=== PATIENT | female | born 1975 | race Hispanic/Latino ===

== ENCOUNTER 2019-11-06 17:07 | Emergency (ER) | payer OTHER ==
[~2019-11-06] VITALS: Ht 157.5 cm; Wt 79.8 kg
--- OUTSIDE RECORDS SUMMARY | 2019-11-06 17:09 | XMS REPORT ---
Author Author [facility] Organization [facility] Address [address] [place] [address] Phone Unavailable Care Team Providers Care Tool Filer Hand Name Role Phone Unavailable Unavailable Problems This patient has no known problems. Allergies, Adverse Reactions, Alerts This patient has no known allergies or adverse reactions. Medications This patient has no known medications. Procedures This patient has no known procedures. Results Test Description Test Time Test Comments Results Result Comments Source BREAST ULTRASOUND BILATERAL 2019-01-20 12:37:37 - BREAST ULTRASOUND BILATERALULTRASOUND OF BOTH BREASTS AND BOTH AXILLA: 01/20/2019CLINICAL: Supplemental Screening for Dense Breast. Comparison is made to exams dated 01/07/2019 mammogram, 12/25/2016 ultrasound, and 12/25/2016 mammogram - [facility]. Real-time ultrasound of both breasts and both axilla and clinical breast exam was performed. No abnormalities were seen sonographically in either breast or either axilla. Clinical breast exam are unremarkable.IMPRESSION: NEGATIVE There is no sonographic evidence of malignancy. Patient has been informed that she has areas of dense breast tissue that could make it difficult to find a small cancer. A screening mammogram and supplemental ultrasound for dense breast tissue is recommended in 1 year.Wanda Ricci M.D. dm/:01/20/2019 12:37:37 Cardiopulmonary Technician And Eeg Tech: Ekta HINTON, [facility] sent: BIRADS 1-2 Combo FU Letter Ultrasound BI- RADS: 1 Negative SCR MAMM BILATERAL FERNANDA CAD DIGITAL 2019-01-07 13:36:57 - SCR MAMM BILATERAL FERNANDA CAD DIGITALBILATERAL DIGITAL SCREENING MAMMOGRAM 3D/2D WITH CAD: 01/07/2019CLINICAL: Asymptomatic. Digital breast tomosynthesis was performed in addition to routine CC and MLO views. Current mammographic images were evaluated by either a Merkle M-Vu or a Neverwarecker CAD (computer aided detection system). Comparison is made to exams dated 12/31/2017 mammogram, 017 mammogram, and 12/24/2015 mammogram - [facility] The tissue of both breasts is heterogeneously dense. This may lower the sensitivity of mammography. No suspicious mass, architectural distortion, malignant type calcification, or lymph node abnormality detected. Breast architecture is stable compared to prior exams.IMPRESSION: NEGATIVEThere is no mammographic evidence of malignancy. Resume annual screening mammography in one year. Leticia cristina/carmelina:01/07/2019 13:36:57 Cardiopulmonary Technician And Eeg Tech: Sue Kumar , [facility] sent: BIRADS 1-2 Normal Mammogram BI-RADS: 1 Negative
[2019-11-06] MEDS ORDERED: IBUPROFEN 600 MG TAB PO STA (17:45)
[2019-11-06] MEDS ORDERED: IBUPROFEN 400 MG TAB ONE (17:52)
[2019-11-06] MEDS ORDERED: IBUPROFEN 400 MG TAB PO NR (18:00)
[2019-11-06] MEDS ORDERED: ACETAMINOPHEN 325 MG TAB PO ONE (18:00)
--- NOTE | 2019-11-06 18:00 | NUR ---
orange band per protocol. pt wearing mask to room. swabs taken per protocol.
--- NOTE | 2019-11-06 18:10 | Diagnostic Imaging Report ---
EXAMINATION: CXR 1 [facility] INDICATION: ^cough ^[id number] ^[id number] COMPARISON: None FINDINGS: AP view TUBES and LINES: None. LUNGS: Lungs are well inflated. No definite focal consolidation. Minimal left lower lung field haziness. PLEURA: No pleural effusion or pneumothorax. HEART AND MEDIASTINUM: The cardiomediastinal silhouette is enlarged. BONES AND SOFT TISSUES: No acute osseous lesion. Soft tissues are unremarkable. UPPER ABDOMEN: No free air under the diaphragm. IMPRESSION: Minimal left lower lung field haziness, could be artifactual due to overlying soft tissues or represent developing pneumonia in the appropriate clinical context. Signed by: Dr. Sesar Mccall MD on 11/06/2019 6:06 PM
[2019-11-06] MEDS ORDERED: TESSALON PERLE100 MG PO (18:16)
[2019-11-06] MEDS ORDERED: CEFDINIR300 MG PO (18:16)
--- NOTE | 2019-11-06 18:29 | Emergency Department Note ---
History of Present Illnes History of Present Illness Chief Complaint: General Medicine Complaints History of Present Illness This is a 44 year old female with cough and fever, seen her MD, JANEID was negative..Sent by her doctor. Historian: Patient Arrival Mode: Car Onset (how long ago): day(s) (3) Location: chest Quality: burning Radiation: non-radiation Severity: moderate Onset quality: gradual Duration (how long): day(s) (3) Timing of current episode: constant Progression: unchanged Chronicity: new Relieving factors: none Exacerbating factors: none Associated symptoms: cough, fever/chills Treatments prior to arrival: none Past Medical/Family History Physician Review I have reviewed the patient's past medical and family history. Any updates have been documented here. Past Medical History Recent Fever: Yes Clinical Suspicion of Infectio: Yes New/Unexplained Change in Ment: No Past Medical History: Hypertension, Hyperlipedemia Other Medical History: obesity Past Surgical History: Social History Smoking Cessation: Never Smoker Counseling Performed: No Alcohol Use: Occasional Any Illegal Drug Use: No TB Exposure/Symptoms: No Physically hurt or threatened: No Other Any Pre-Existing Lines (PICC,: No Last Flu: unk Last Pneumovax: unk Review of Systems Review of Systems Constitutional: no symptoms, fever EENTM: no symptoms Cardiovascular: no symptoms Respiratory: no symptoms, cough Gastrointestinal: no symptoms Genitourinary: no symptoms Musculoskeletal: no symptoms Neurological: no symptoms Psychological: no symptoms Endocrine: no symptoms Hematological/Lymphatic: no symptoms Review of other systems All other systems reviewed and negative. Physical Exam Related Data Allergies: Coded Allergies: No Known Allergies (Unverified , 11/06/19) Triage Vital Signs Vital Signs Date Time Temp Pulse Resp B/P (MAP) Pulse Ox O2 Delivery O2 Flow Rate FiO2 11/06/19 17:30 99.0 108 20 153/95 98 Vital signs reviewed: Yes Physical Exam CONSTITUTIONAL Constitutional: well-developed, well-nourished HENT HENT: normocephalic, atraumatic, oropharynx clear/moist, nose normal HENT L/R: left ext ear normal, right ext ear normal EYES Eyes: PERRL, conjunctivae normal NECK Neck: ROM normal PULMONARY Pulmonary: effort normal, breath sounds normal, rhonchi (left lower) CARDIOVASCULAR Cardiovascular: regular rhythm, heart sounds normal, capillary refill normal, normal rate GASTROINTESTINAL Abdominal: soft, nontender, bowel sounds normal GENITOURINARY Genitourinary: exam deferred SKIN Skin: warm, dry MUSCULOSKELETAL Musculoskeletal: ROM normal NEUROLOGICAL Neurological: alert, oriented x 3, no gross motor or sensory deficits PSYCHOLOGICAL Psychological: mood/affect normal, judgement normal Results Laboratory Lab results reviewed: Yes Imaging Imaging results reviewed: Yes Critical Care Time Subsequent provider I assumed direction of critical care for this patient from another provider of my specialty. Assessment & Plan Assessment & Plan Problems: (1) Fever (2) Pneumonia Depart Disposition: HOME, SELF-CARE Last Vital Signs Date Time Temp Pulse Resp B/P (MAP) Pulse Ox O2 Delivery O2 Flow Rate FiO2 11/06/19 17:51 102.7 11/06/19 17:30 108 20 98 Home Meds Active Scripts Benzonatate (TESSALON PERLE) 100 Mg Capsule, 1 TAB PO TID for cugh for 10 Days, #10 Prov:ALEKSANDRA WALDRON MD 11/06/19 Cefdinir (OMNICEF) 300 Mg Capsule, 14 MG PO BID, #14 CAP Prov:ALEKSANDRA WALDRON MD 11/06/19 Medications in the ED Ibuprofen 600 mg ONCE STAT PO ; Start 11/06/19 at 17:45; Stop 11/06/19 at 17:48; Status DC Acetaminophen 975 mg ONCE ONCE PO Last administered on 11/06/19at 17:51; Admin Dose 975 MG; Start 11/06/19 at 18:00; Stop 11/06/19 at 18:01; Status DC Ibuprofen 800 mg STK-MED ONCE .ROUTE ; Start 11/06/19 at 17:52; Stop 11/06/19 at 17:48; Status DC Ibuprofen 800 mg ONCE PO Last administered on 11/06/19at 18:13; Admin Dose 800 MG; Start 11/06/19 at 18:00; Stop 11/06/19 at 18:59 ALEKSANDRA WALDRON MD November 06, 2019 18:29
== END 2019-11-06 19:00 | disposition home or self-care (01) ==
LOC: FSED 17:07
DX: R50.9 Fever, unspecified (principal); R05 Cough; J18.9 Pneumonia, unspecified organism; I10 Essential (primary) hypertension; E78.5 Hyperlipidemia, unspecified
CPT/HCPCS: 71045; 80053; 81003; 83518; 85025; 87400; 99284

== ENCOUNTER 2019-11-13 22:51 | Emergency (ER) | payer OTHER ==
[~2019-11-13] VITALS: Ht 157.5 cm; Wt 79.8 kg
[~2019-11-13 22:51] MED LIST changes: -IOPAMIDOL 370 MG/ML 200 ML INFUS..BTL INJ ONE; -SODIUM CHLORIDE 0.9% 50ML 50 ML ONE
--- OUTSIDE RECORDS SUMMARY | 2019-11-13 22:54 | XMS REPORT ---
Author Author [facility] t Organization [facility] Address [address] [place] [address] Phone Unavailable Care Team Providers Care Upholstery Sewer Name Role Phone MD MICHELL HALLMAN PCP MICHELL HALLMAN Attphys Unavailable Apple GUEVARA, M Patricia Attphys Unavailable ALEKSANDRA WALDRON Attrishabh Unavailable Advance Directives Directive Decision Effective Date Termination Date Comments Sour ce Yes N/A [facility] Problems Condition Name Condition Details Condition Category Status Onset Date Resolution Date Last Treatment Date Treating Clinician Comments Source Pneumonia Problem [facility] Fever Problem [facility] Allergies, Adverse Reactions, Alerts This patient has no known allergies or adverse reactions. Social History Social Habit Start Date Stop Date Quantity Comments Source Sex Assigned At 1975 00:00:00 1975 00:00:00 Female [facility] Medications Ordered Medication Name Filled Medication Name Start Date Stop Da te Current Medication? Ordering Clinician Indication Dosage Frequency Signature (SIG) Comments Components Source Benzonatate (Tessalon Perle) 100 Mg CAPSULE Benzonatat e (Tessalon Perle) 100 Mg CAPSULE 2019-11-06 18:16:00 Yes 1 [facility] Cefdinir (Omnicef) 300 Mg CAPSULE Cefdinir (Omnicef) 300 Mg CAPSULE 2019-11-06 18:16:00 Yes 14 [facility] Vital Signs Vital Name Observation Time Observation Value Comments Source Weight 2019-11-06 17:30:00 176 [lb_av] [facility] BMI (Body Mass Index) 2019-11-06 17:30:00 32.2 kg/m2 [facility] Procedures This patient has no known procedures. Plan of Care Planned Activity Planned Date Details Comments Source Goal Patient referral [code = 8748055 ] [facility] Goal Patient referral [code = 4042078 ] [facility] Instructions Fever - Adult [facility] Instructions Pneumonia - Bacterial [facility] Encounters Start Date/Time End Date/Time Encounter Type Admission Type Attendi [facility] Care Department Encounter ID Source 2019-11-10 00:00:00 2019-11-10 00:00:00 Nurse Triage [facility] Patricia [facility] [id number] 2019-11-06 17:07:00 2019-11-06 19:00:00 Departed Emergency Room 1 ALEKSANDRA WALDRON [facility] [id number] I [facility] Results Test Description Test Time Test Comments Results Result Comments Source CHEST 2 VIEWS 2019-11-13 14:45:00 [facility] [address] [address] Patient Name: ALDEN ACKERMAN MR #: [id number] : 1975 Age/Sex: 44/F Req #: [id number] Adm Physician: Ordered by: MICHELL HALLMAN MD Report #: [id number] Location: [facility] Room/Bed: Procedure: [id number] DX/CHEST 2 VIEWS Exam Date: 11/13/19 Exam Time: 141 REPORT STATUS: Signed X-ray chest PA and lateral views Comparison: 11/06/2019 History: Possible left lower lobe pneumonia Findings: Normal cardiomediastinal silhouette, diaphragms, lung suarez, regional bones , upper abdomen and extrathoracic soft tissues. Impression: No acute abnormality. Signed by: Suresh Barrera MD on 11/13/2019 2:46 PM Dictated By: SURESH BARRERA MD 144 Transcribed By: ARVIND on 11/13/19 144 COPY TO: MICHELL PEÑA MD CXR 1 [facility] 2019-11-06 18:04:[address] [address] Patient Name: ALDEN ACKERMAN MR #: [id number] : 1975 Age/Sex: 44/F Req #: [id number] Adm Physician: Ordered by: ALEKSANDRA WALDRON MD Report #: [id number] Location: [facility] Room/Bed: Procedure: [id number] [facility] Exam Date: 11/06/19 Exam Time: 1755 REPORT STATUS: Signed EXAMINATION: CXR 1 [facility] INDICATION: cough [id number] COMPARISON: None FINDINGS: AP view TUBES and LINES: None. LUNGS: Lungs are well inflated. No definite focal consolidation. Minimal left lower lung field haziness. PLEURA: No pleural effusion or pneumothorax. HEART AND MEDIASTINUM: The cardiomediastinal silhouette is enlarged. BONES AND SOFT TISSUES: No acute osseous lesion. Soft tissues are unremarkable. UPPER ABDOMEN: No free air under the diaphragm. IMPRESSION: Minimal left lower lung field haziness, could be artifactual due to overlying soft tissues or represent developing pneumonia in the appropriate clinical context. Signed by: Dr. Sesar Plascencia MD on 11/06/2019 6:06 PM Dictated By: SESAR PLASCENCIA MD 05 Transcribed By: ARVIND on 11/06/191805 COPY TO: ALEKSANDRA WALDRON MD BREAST ULTRASOUND BILATERAL 2019-01-20 12:37:37 - BREAST ULTRASOUND BILATERALULTRASOUND OF BOTH BREASTS AND BOTH AXILLA: 01/20/2019CLINICAL: Supplemental Screening for Dense Breast. Comparison is made to exams dated 01/07/2019 mammogram, 12/25/2016 ultrasound, and 12/25/2016 mammogram - [facility] Real-time ultrasound of both breasts and both [...] in 1 year.Wanda Ricci M.D. dm/:01/20/2019 12:37:37 Flat Cutter: Ekta HINTON, [facility] sent: BIRADS 1-2 Combo FU Letter Ultrasound BI- RADS: 1 Negative SCR MAMM BILATERAL FERNANDA CAD DIGITAL 2019-01-07 13:36:57 - SCR MAMM BILATERAL FERNANDA CAD DIGITALBILATERAL DIGITAL SCREENING MAMMOGRAM 3D/2D WITH CAD: 01/07/2019CLINICAL: Asymptomatic. Digital breast tomosynthesis was performed in addition to routine CC and MLO views. Current mammographic images were evaluated by either a Fracture M-Vu or a [employer]er CAD (computer aided detection system). Comparison is made to exams dated 12/31/2017 mammogram, 017 mammogram, and 12/24/2015 mammogram - [facility]. The tissue of both breasts is heterogeneously dense. This may lower the sensitivity of mammography. No suspicious mass, architectural distortion, malignant type calcification, or lymph node abnormality detected. Breast architecture is stable compared to prior exams.IMPRESSION: NEGATIVEThere is no mammographic evidence of malignancy. Resume annual screening mammography in one year. Leticia Meng M.D. ar/penrad:01/07/2019 13:36:57 Flat Cutter: Sue Kumar , [facility] sent: BIRADS 1-2 Normal Mammogram BI-RADS: 1 Negative
--- OUTSIDE RECORDS SUMMARY | 2019-11-13 22:54 | XMS REPORT | Summary of Care ---
Author Author [facility] Organization [facility] Address Unknown Phone Unavailable Care Team Providers Care Curtain Cleaner Name Role Phone Maribel Bowers PCP Reason for Visit * Reason Comments Assessment covid exposure Information Encounter Details Care Team Description Date Type Department Patricia Chiu RN [address] [place] [id number] Assessment (covid exposure); Information 11/10/2019 Nurse Triage [facility] [address] [place] [id number] Allergies No Known Allergiesdocumented as of this encounter (statuses as of 11/10/2019) Medications End Date Status Medication Sig Dispensed Refills Start Date Active labetalol 300 mg tablet Take 300 mg 0 by mouth 2 0 (two) times daily. Active fenofibrate 145 mg tablet fenofibrate 0 nanocrystalli zed 145 mg tablet Active triamterene-hydrochloroth triamterene 0 iazide 37.5-25 mg per 37.5 capsule mg-hydrochlor othiazide 25 mg capsule documented as of this encounter (statuses as of 11/10/2019) Active Problems No known active problemsdocumented as of this encounter (statuses as of 11/10/2019) Social History Date Tobacco Use Types Packs/Day Years Used Never Smoker Smokeless Tobacco: Never Used Sex Assigned at Date Recorded Not on file Industry Job Start Date Occupation Not on file Not on file Not on file Travel End Travel History Travel Start No recent travel history available. Date Recorded COVID-19 Exposure Response 11/04/2019 1:42 PM CDT In the last month, have you been in contact with No / Unsure someone who was confirmed or suspected to have Coronavirus / COVID-19? documented as of this encounter Last Filed Vital Signs Not on filedocumented in this encounter Plan of Treatment Health Maintenance Due Date Last Done Comments DTaP,Tdap,and Td Vaccines 1987 (1 - Tdap) PAP SMEAR 1997 Breast Cancer Screening 2016 (MAMMOGRAM) INFLUENZA VACCINE (Season 02/24/2020 03/28/2010, 03/10/2009, 03/25/2008 Ended) PNEUMOCOCCAL 0-64 YEARS Aged Out No longer elig ible based COMBINED SERIES on patient's age to complete this topic documented as of this encounter Results Not on filedocumented in this encounter
[2019-11-13] MEDS ORDERED: SODIUM CHLORIDE 0.9% 1000ML 1,000 ML IV STA (22:59)
--- NOTE | 2019-11-13 23:21 | Emergency Department Note ---
History of Present Illnes History of Present Illness Chief Complaint: Abdominal Complaints History of Present Illness This is a 44 year old female with fevers of several days duration presents to the ED for abd pain with BRBPR which started prior to arrival. Patient was treated for PNA at [facility] last week . 1st COVID test neg, 2nd COVID test pending. Started on azithromycin with noted blood clot with 2 episodes of diarrhea. . Electrician Manager Required: No Onset (how long ago): second(s) (CARD PROCESSING CLERK) Radiation: abdomen Severity: mild Onset quality: sudden Duration (how long): hour(s) (CARD PROCESSING CLERK) Timing of current episode: constant Progression: unchanged Chronicity: new Context: recent illness, new medications Relieving factors: none Exacerbating factors: none Associated symptoms: nausea/vomiting Treatments prior to arrival: other (azithromycin) Previous service: medications given, tests performed Past Medical/Family History Physician Review I have reviewed the patient's past medical and family history. Any updates have been documented here. Past Medical History Recent Fever: Yes Clinical Suspicion of Infectio: Yes New/Unexplained Change in Ment: No Past Medical History: Hypertension, Hyperlipedemia Other Medical History: obesity Past Surgical History: Social History Smoking Cessation: Former smoker Alcohol Use: None Any Illegal Drug Use: No Review of Systems Review of Systems Constitutional: fever EENTM: no symptoms Cardiovascular: no symptoms Respiratory: no symptoms Gastrointestinal: abdominal pain, diarrhea Genitourinary: no symptoms Musculoskeletal: no symptoms Neurological: no symptoms Psychological: no symptoms Endocrine: no symptoms Hematological/Lymphatic: no symptoms Review of other systems All other systems reviewed and negative. Physical Exam Related Data Allergies: Coded Allergies: No Known Allergies (Unverified , 11/06/19) Vital signs reviewed: Yes Physical Exam CONSTITUTIONAL Constitutional: well-developed, well-nourished HENT HENT: normocephalic, atraumatic, oropharynx clear/moist, nose normal HENT L/R: left ext ear normal, right ext ear normal EYES Eyes: PERRL, conjunctivae normal NECK Neck: ROM normal PULMONARY Pulmonary: effort normal, breath sounds normal CARDIOVASCULAR Cardiovascular: regular rhythm, heart sounds normal, capillary refill normal, normal rate GASTROINTESTINAL Abdominal: soft, tender (epigastric) GENITOURINARY Genitourinary: exam deferred SKIN Skin: warm, dry MUSCULOSKELETAL Musculoskeletal: ROM normal NEUROLOGICAL Neurological: alert, oriented x 3, no gross motor or sensory deficits PSYCHOLOGICAL Psychological: mood/affect normal, judgement normal Results Laboratory Lab results reviewed: Yes Laboratory comments CMP : elevated liver enzymes with alk phos. CBC : elevated WBC Imaging Imaging results reviewed: Yes Impressions [facility] [address] [address] Patient Name: ALDEN ACKERMAN MR #: [id number] : 1975 Age/Sex: 44/F Req #: [id number] Adm Physician: Ordered by: QUETA CONSTANTINO DO Report #: [id number] Location: ER Room/Bed: Procedure: [id number] CT/CT ABDOMEN/PELVIS W Exam Date: Exam Time: REPORT STATUS: Signed EXAM: CT Abdomen and Pelvis WITH contrast INDICATION: Bright red blood per rectum. COMPARISON: None. TECHNIQUE: Abdomen and pelvis were scanned utilizing a multidetector helical scanner from the lung base to the pubic symphysis after administration of IV contrast. Coronal and sagittal reformations were obtained. Routine protocol was performed. Scan was performed when during portal venous phase. IV CONTRAST: 100 cc of Isovue-370 ORAL CONTRAST: Gastrografin COMPLICATIONS: None RADIATION DOSE: Total DLP: 549 mGy*cm Estimated effective dose: (DLP x 0.015 x size factor) mSv CTDIvol has been reviewed. It is below the limits set by the Radiation Protocol Committee (RPC). FINDINGS: LINES and TUBES: None. LOWER THORAX: Unremarkable HEPATOBILIARY: Diffuse hepatic steatosis. No evidence of focal lesion. No biliary ductal dilation. GALLBLADDER: No radio-opaque stones or sludge. No wall thickening. SPLEEN: No splenomegaly. PANCREAS: No focal masses or ductal dilatation. ADRENALS: No adrenal nodules KIDNEYS/URETERS: No evidence of hydronephrosis, stone, or solid mass. Subcentimeter right lower pole renal hypodensity is too small to characterize, but likely represents a cyst. GI TRACT: Mild thickening of the colon, most pronounced in the sigmoid colon. Mild thickening of the rectum. No evidence of bowel obstruction. Appendix is normal. PELVIC ORGANS/BLADDER: Unremarkable. LYMPH NODES: No lymphadenopathy. VESSELS: Unremarkable. PERITONEUM / RETROPERITONEUM: No free air or fluid. BONES AND SOFT TISSUES: Unremarkable. CONCLUSION: Findings of non-specific proctocolitis, which may be infectious or inflammatory. Diffuse hepatic steatosis. Signed by: Dr. Anjel Velasquez MD on 11/14/2019 1:53 AM Dictated By: ANJEL VELASQUEZ MD 2 Transcribed By: ARVIND on 11/14/19152 COPY TO: QUETA CONSTANTINO DO~ Assessment & Plan Assessment & Plan Final Impression: (1) Elevated liver function tests (2) Proctocolitis with rectal bleeding (3) Hypokalemia Assessment & Plan admission/transfer offered to patient for GI evaluation but politely declined. patient to be discharged to home with Rx levaquin and flagyl. Dr Akbar Romo's office notified to contact patient. PCP notified regarding course of ED evaluation Depart Disposition: HOME, SELF-CARE Last Vital Signs Date Time Temp Pulse Resp B/P (MAP) Pulse Ox O2 Delivery O2 Flow Rate FiO2 11/14/19 02:43 95 14 99 11/14/19 01:45 122/77 11/13/19 23:18 100.0 Home Meds Active Scripts Benzonatate (TESSALON PERLE) 100 Mg Capsule, 1 TAB PO TID for cugh for 10 Days, #10 Prov:ALEKSANDRA WALDRON MD 11/06/19 Cefdinir (OMNICEF) 300 Mg Capsule, 14 MG PO BID, #14 CAP Prov:ALEKSANDRA WALDRON MD 11/06/19 Medications in the ED Sodium Chloride 1,000 ml @ 0 mls/hr Q0M STAT IV ; Start 11/13/19 at 22:59; Stop 11/13/19 at 23:01; Status DC QUETA CONSTANTINO DO November 13, 2019 23:21
[2019-11-13] MEDS ORDERED: ACETAMINOPHEN 325 MG TAB PO STA (23:22)
[2019-11-13] MEDS ORDERED: ACETAMINOPHEN 325 MG TAB ONE (23:36)
[2019-11-13 23:39] LABS: BASOPHILS # (AUTO) 0.1 (0.0-0.1); BASOPHILS % 0.6 % (0.0-1.0); EOSINOPHILS % 0.1 % (0.0-6.0); HEMATOCRIT 35.4 % (34.2-44.1); LYMPHOCYTES # (AUTO) 3.8 (1.0-3.2); LYMPHOCYTES % 30.6 % (18.0-39.1); MEAN CORPUSCULAR HEMOGLOBIN 27.2 pg (28-32); MEAN CORPUSCULAR HGB CONC 33.9 g/dL (31-35); MEAN CORPUSCULAR VOLUME 80.3 fL (81-99); MONOCYTES # (AUTO) 0.8 (0.2-0.8); MONOCYTES % 6.8 % (4.4-11.3); NEUTROPHILS # (AUTO) 7.5 (2.1-6.9); PLATELET COUNT 302 x10e3/uL (140-360); RED BLOOD COUNT 4.41 x10e6/uL (3.6-5.1); RED CELL DISTRIBUTION WIDTH 12.8 % (11.7-14.4)
[2019-11-13] MEDS ORDERED: DIATRIZOATE MEGL/DIATRIZOA SOD 30 ML BTL PO ONE (23:40)
[2019-11-13 23:52] LABS: INR 0.88; PROTHROMBIN TIME 12.4 seconds (11.9-14.5)
[2019-11-14 00:02] LABS: ALANINE AMINOTRANSFERASE 132 IU/L (0-55); ALBUMIN/GLOBULIN RATIO 0.6 (0.8-2.0); ALKALINE PHOSPHATASE 155 IU/L (40-150); ANION GAP 18.8 mmol/L (8-16); BLOOD UREA NITROGEN 14 mg/dL (7-26); BUN/CREATININE RATIO 19 (6-25); CARBON DIOXIDE 20 mmol/L (22-29); CHLORIDE 96 mmol/L (98-107); CREATININE, SERUM 0.75 mg/dL (0.57-1.11); EST GLOMERULAR FILTRATION RATE > 60 ML/MIN (60-); GLUCOSE 113 mg/dL (74-118); LIPASE 96 U/L (8-78); SODIUM 132 mmol/L (136-145)
[2019-11-14 00:09] LABS: POTASSIUM 2.8 mmol/L (3.5-5.1)
[2019-11-14] MEDS ORDERED: POTASSIUM CHLORIDE 10MEQ/100ML 100 ML IV STA (00:10)
[2019-11-14] MEDS ORDERED: POTASSIUM CHLORIDE 10MEQ EA PO STA (00:10)
[2019-11-14 00:32] LABS: BILIRUBIN,URINE NEGATIVE (NEGATIVE); CLARITY,URINE CLEAR (CLEAR); COLOR,URINE YELLOW (YELLOW); KETONES,URINE NEGATIVE (NEGATIVE); LEUKOCYTE ESTERASE ,URINE NEGATIVE (NEGATIVE); NITRITE,URINE NEGATIVE (NEGATIVE); PROTEIN,URINE DIPSTICK 1+ (NEGATIVE); URINE UROBILINOGEN 1 mg/dL (0.2 - 1)
[2019-11-14 00:54] LABS: BACTERIA,URINE FEW /HPF; EPITHELIAL CELLS,URINE FEW /LPF
[2019-11-14 00:55] LABS: HYALINE CASTS 0-1 (0-1)
--- NOTE | 2019-11-14 01:00 | NUR ---
Patient brought to Room 3, attached to continous quality assurance monitor body; Pt will be given Potassium supplement per ED MD orders; will continue to monitor; call light in easy reach.
--- NOTE | 2019-11-14 01:57 | Diagnostic Imaging Report ---
EXAM: CT Abdomen and Pelvis WITH contrast INDICATION: Bright red blood per rectum. COMPARISON: None. TECHNIQUE: Abdomen and pelvis were scanned utilizing a multidetector helical scanner from the lung base to the pubic symphysis after administration of IV contrast. Coronal and sagittal reformations were obtained. Routine protocol was performed. Scan was performed when during portal venous phase. IV CONTRAST: 100 cc of Isovue-370 ORAL CONTRAST: Gastrografin COMPLICATIONS: None RADIATION DOSE: Total DLP: 549 mGy*cm Estimated effective dose: (DLP x 0.015 x size factor) mSv CTDIvol has been reviewed. It is below the limits set by the Radiation Protocol Committee (RPC). FINDINGS: LINES and TUBES: None. LOWER THORAX: Unremarkable HEPATOBILIARY: Diffuse hepatic steatosis. No evidence of focal lesion. No biliary ductal dilation. GALLBLADDER: No radio-opaque stones or sludge. No wall thickening. SPLEEN: No splenomegaly. PANCREAS: No focal masses or ductal dilatation. ADRENALS: No adrenal nodules KIDNEYS/URETERS: No evidence of hydronephrosis, stone, or solid mass. Subcentimeter right lower pole renal hypodensity is too small to characterize, but likely represents a cyst. GI TRACT: Mild thickening of the colon, most pronounced in the sigmoid colon. Mild thickening of the rectum. No evidence of bowel obstruction. Appendix is normal. PELVIC ORGANS/BLADDER: Unremarkable. LYMPH NODES: No lymphadenopathy. VESSELS: Unremarkable. PERITONEUM / RETROPERITONEUM: No free air or fluid. BONES AND SOFT TISSUES: Unremarkable. CONCLUSION: Findings of non-specific proctocolitis, which may be infectious or inflammatory. Diffuse hepatic steatosis. Signed by: Dr. Johanna Romero MD on 11/14/2019 1:53 AM
[2019-11-14 02:43] VITALS: BP 132/92
== END 2019-11-14 02:52 | disposition home or self-care (01) ==
LOC: ER 22:51
DX: R10.13 Epigastric pain (principal); R11.2 Nausea with vomiting, unspecified; R94.5 Abnormal results of liver function studies; K51.311 Ulcerative (chronic) rectosigmoiditis with rectal bleeding; E87.6 Hypokalemia; K76.0 Fatty (change of) liver, not elsewhere classified; I10 Essential (primary) hypertension; E78.5 Hyperlipidemia, unspecified
CPT/HCPCS: 36415; 74177; 80053; 81001; 81025; 83690; 85025; 85610; 99284; J3480; J7030

== ENCOUNTER → 2019-11-13 | Outpatient (CLI) | payer OTHER ==
[~2019-11-13] MED LIST: CEFDINIR300 MG PO; IOPAMIDOL 370 MG/ML 200 ML INFUS..BTL INJ ONE; SODIUM CHLORIDE 0.9% 50ML 50 ML ONE; TESSALON PERLE100 MG PO
--- NOTE | 2019-11-13 14:50 | Diagnostic Imaging Report ---
X-ray chest PA and lateral views Comparison: 11/06/2019 History: Possible left lower lobe pneumonia Findings: Normal cardiomediastinal silhouette, diaphragms, lung suarez, regional bones , upper abdomen and extrathoracic soft tissues. Impression: No acute abnormality. Signed by: Suresh Cesar MD on 11/13/2019 2:46 PM
== END ==
LOC: RAD 14:14
PROVIDERS: ATTEND Internal Medicine
DX: J18.9 Pneumonia, unspecified organism (principal)
CPT/HCPCS: 71046